=== PATIENT | female | born 1965 | race African-American/Black ===

== ENCOUNTER 2016-03-25 12:15 | Emergency (ER) | payer MEDICARE, OTHER ==
--- NOTE | 2016-03-25 14:07 | EDDOCDS ---
Nurse's Notes [facility] Name: Michelle Boyer Age: 50 yrs Sex: Female : 1965 Arrival Date: 03/25/2016 Time: 12:15 Bed TR2 Private MD: NO PRIMARY PHYSICIAN, . Diagnosis: Cutaneous abscess of right upper limb Presentation: 03/25 12:23 Presenting complaint: Patient states: spider bite that has been healing for the past 3 dsf weeks and she thinks she is having a reaction to the Keflex. Pt c/o dry skin and itching. Adult Sepsis Screening: The patient does not have new or worsening altered mentation. Patient's respiratory rate is less than 22. Systolic blood pressure is greater than 100. Patient has a qSOFA score of 0- Negative Sepsis Screen. Suicide/Homicide risk assessment- the patient denies having any suicidal and/or homicidal ideations and does not present with any other emotional, behavioral or mental health complaints. Status: Patient is not a press service reader or dependent. Transition of care: patient was not received from another setting of care. 12:23 Acuity: IAIN Level 4 dsf 12:23 Method Of Arrival: Walkin/Carried/Asstd dsf Triage Assessment: 12:30 Bite Description: Bite sustained to right bicep by a spider, Animal Information: not dsf applicable. General: Appears in no apparent distress, Behavior is appropriate for age, cooperative. Pain: Location: right bicep and right antecubital area Pain currently is 8 out of 10 on a pain scale. Pt Declines HIV testing. 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 levemir 16 units twice a day (Last dose: 03/25/2016 10:00) 2. trulicty 7.5 mg weekly on fridays 3. Cozaar 50 mg Oral tab 1 tab once daily (Last dose: 03/25/2016 09:50) 4. hydrochlorothiazide 25 mg Oral tab 1 tab once daily (Last dose: 03/25/2016 09:50) 5. Benicar 40 mg oral tab 1 tab once daily (Last dose: 03/25/2016 09:50) 6. Singulair 10 mg Oral tab 1 tab once daily (Last dose: 03/24/2016) 7. Claritin 10 mg Oral tab 1 tab once daily (Last dose: 03/24/2016) 8. Keflex 500 mg Oral cap 1 cap every 6 hours (Last dose: 03/25/2016 09:50) 9. Novolog flex pen Sub-Q three times a day sliding scale 10. Vistaril 25 mg Oral cap 1 cap 3 times per day (Last dose: 03/24/2016) 11. Benadryl 50 mg Oral cap as needed (Last dose: 03/25/2016 09:50) 12. Diflucan 150 mg oral tab every 3 days - PMHx: Hypertension; Diabetes - IDDM: uncontrolled; Seasonal Allergies; - PSHx: none; - Immunization history:: Last tetanus immunization: up to date. - Social history: Smoking status: Patient states was never smoker of tobacco. No barriers to communication noted, The patient speaks fluent Bengali, Speaks appropriately for age. - : The pt / caregiver states he / she is not on anticoagulants. Home medication list is obtained from the patient. - Exposure Risk Screening:: None identified. Screenin:56 Screening information is obtained from the patient. Fall risk: No risks identified. dwg Assistance ADL's: requires no assistance with activities of daily living. Abuse/DV Screen: The patient / caregiver reports he/she is: not in a situation that causes fear, pain or injury. Nutritional screening: No deficits noted. Advance Directives: Currently, there is no health care proxy. There is no active DNR order. There is no living will. There is no Power of Entertainment Director. Advance directive information has not previously been placed in an [facility] medical record. Further advance directive information is declined. home support is adequate. Assessment: 13:54 General: Dry, sterile dressing applied to right upper arm.. Neurological: Level of dwg Consciousness is awake, alert, Oriented to person, place, time. Respiratory: Airway is patent Respiratory effort is even, unlabored, Respiratory pattern is regular, symmetrical. Vital Signs: 12:18 BP 149 / 93; Pulse 96; Resp 18 S; Temp 97.3(O); Pulse Ox 96% on R/A; Weight 97.52 kg gr2 (R); Height 5 ft. 2 in. (157.48 cm) (R); Pain 7/10; 13:38 BP 147 / 92; Pulse 91; Resp 18; Temp 97.5(O); Pulse Ox 100% on R/A; Pain 8/10; mdr 12:18 Body Mass Index 39.32 (97.52 kg, 157.48 cm) gr2 Vitals: 12:18 Log In Time: March 25, 2016 at 12:18. gr2 ED Course: 12:17 Patient visited by Noe Alba. gr2 12:17 Patient moved to Waiting gr2 12:18 NO PRIMARY PHYSICIAN, . is Private Physician. gr2 12:20 Patient visited by Noe Alba. gr2 12:22 Patient moved to Pre RCE gr2 12:24 Triage Initiated dsf 12:44 Patient moved to Triage 1 kp 12:59 Chidi Romo PA is PHCP. btw 12:59 Becky Green MD is Attending Physician. btw 12:59 Patient visited by Chidi Romo PA. btw 13:39 Patient visited by Nikunj Cannon PCA. mdr 13:43 Patient moved to TR2 dsf 13:49 Patient name changed from Michelle\S\\S\Merlin\S\ to Michelle\S\ \S\Merlin. EDMS 13:54 [facility] Payment Agreement was scanned into [employer] and attached to record. jp5 Order Results: There are currently no results for this order. Outcome: 13:26 Discharge ordered by Provider. btw 14:07 Patient left the ED. deg Signatures: Dispatcher [employer] EDMS Mer Underwood, Photography Professor Unit deg Narinder Mclean, RN RN [facility] Veronica Pierre RN RN [facility] Chidi Romo PA PA btw Ely Bedoya RN RN dsf Noe Alba gr2 Teo Mckenna jp5 Nikunj Cannon PCA PCA mdr MTDD
--- NOTE | 2016-03-25 14:07 | EDDOCDS ---
Physician Documentation [facility] Name: Michelle Boyer Age: 50 yrs Sex: Female : 1965 Arrival Date: 03/25/2016 Time: 12:15 Bed TR2 Private MD: NO PRIMARY PHYSICIAN, . Disposition: 03/25/16 13:26 Discharged to Home/Self Care. Impression: Cutaneous abscess of right upper limb. - Condition is Stable. - Discharge Instructions: Abscess, [id number]. - Prescriptions for vancomycin 25mg/ml Oral Suspension - take 10 milliliter by ORAL route 2 times per day for 2 weeks; 200 milliliter. Diflucan 150 mg Oral Tablet - take 1 tablet by ORAL route one time for 1 day; 1 tablet. - Medication Reconciliation, Local Pharmacy Hours form. - Follow up: Private Physician; When: Call to arrange an appointment; Reason: Further diagnostic work-up, Recheck today's complaints, Continuance of care. - Problem is an ongoing problem. - Symptoms are unchanged. Historical: - Allergies: Aspirin (Swelling); Motrin (Swelling); Bactrim (Vomit); Levaquin (sensitive ); - Home Meds: 1. levemir 16 units twice a day (Last dose: 03/25/2016 10:00) 2. trulicty 7.5 mg weekly on fridays 3. Cozaar 50 mg Oral tab 1 tab once daily (Last dose: 03/25/2016 09:50) 4. hydrochlorothiazide 25 mg Oral tab 1 tab once daily (Last dose: 03/25/2016 09:50) 5. Benicar 40 mg oral tab 1 tab once daily (Last dose: 03/25/2016 09:50) 6. Singulair 10 mg Oral tab 1 tab once daily (Last dose: 03/24/2016) 7. Claritin 10 mg Oral tab 1 tab once daily (Last dose: 03/24/2016) 8. Keflex 500 mg Oral cap 1 cap every 6 hours (Last dose: 03/25/2016 09:50) 9. Novolog flex pen Sub-Q three times a day sliding scale 10. Vistaril 25 mg Oral cap 1 cap 3 times per day (Last dose: 03/24/2016) 11. Benadryl 50 mg Oral cap as needed (Last dose: 03/25/2016 09:50) 12. Diflucan 150 mg oral tab every 3 days - PMHx: Hypertension; Diabetes - IDDM: uncontrolled; Seasonal Allergies; - PSHx: none; - Immunization history:: Last tetanus immunization: up to date. - Social history: Smoking status: Patient states was never smoker of tobacco. No barriers to communication noted, The patient speaks fluent Uzbek, Speaks appropriately for age. - : The pt / caregiver states he / she is not on anticoagulants. Home medication list is obtained from the patient. - Exposure Risk Screening:: None identified. 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 2 in. (157.48 cm) (R); Pain 7/10; 13:38 BP 147 / 92; Pulse 91; Resp 18; Temp 97.5(O); Pulse Ox 100% on R/A; Pain 8/10; mdr 12:18 Body Mass Index 39.32 (97.52 kg, 157.48 cm) gr2 MDM: 13:54 [facility] [place] Payment Agreement was scanned into [employer] and attached to record. jp5 13:54 Financial registration complete. jp5 Signatures: Mer Underwood, Tool Technician Unit deg Narinder Mclean RN RN Chidi Almonte PA PA btw Fuller, DesireeRN RN Teo Dorsey jp5 The chart was reviewed and I authenticate all verbal orders and agree with the evaluation and treatment provided.Attachments: 13:54 [facility] [place] Payment Agreement jp5 MTDD
--- NOTE | 2016-03-27 15:08 | EDDOCDS ---
Physician Documentation [facility] Name: Michelle Boyer Age: 50 yrs Sex: Female : 1965 Arrival Date: 03/25/2016 Time: 12:15 Bed TR2 Private MD: NO PRIMARY PHYSICIAN, . Disposition: 03/25/16 13:26 Discharged to Home/Self Care. Impression: Cutaneous abscess of right upper limb. - Condition is Stable. - Discharge Instructions: Abscess, [id number]. - Prescriptions for vancomycin 25mg/ml Oral Suspension - take 10 milliliter by ORAL route 2 times per day for 2 weeks; 200 milliliter. Diflucan 150 mg Oral Tablet - take 1 tablet by ORAL route one time for 1 day; 1 tablet. - Medication Reconciliation, Local Pharmacy Hours form. - Follow up: Private Physician; When: Call to arrange an appointment; Reason: Further diagnostic work-up, Recheck today's complaints, Continuance of care. - Problem is an ongoing problem. - Symptoms are unchanged. Historical: - Allergies: Aspirin (Swelling); Motrin (Swelling); Bactrim (Vomit); Levaquin (sensitive ); - Home Meds: 1. levemir 16 units twice a day (Last dose: 03/25/2016 10:00) 2. trulicty 7.5 mg weekly on fridays 3. Cozaar 50 mg Oral tab 1 tab once daily (Last dose: 03/25/2016 09:50) 4. hydrochlorothiazide 25 mg Oral tab 1 tab once daily (Last dose: 03/25/2016 09:50) 5. Benicar 40 mg oral tab 1 tab once daily (Last dose: 03/25/2016 09:50) 6. Singulair 10 mg Oral tab 1 tab once daily (Last dose: 03/24/2016) 7. Claritin 10 mg Oral tab 1 tab once daily (Last dose: 03/24/2016) 8. Keflex 500 mg Oral cap 1 cap every 6 hours (Last dose: 03/25/2016 09:50) 9. Novolog flex pen Sub-Q three times a day sliding scale 10. Vistaril 25 mg Oral cap 1 cap 3 times per day (Last dose: 03/24/2016) 11. Benadryl 50 mg Oral cap as needed (Last dose: 03/25/2016 09:50) 12. Diflucan 150 mg oral tab every 3 days - PMHx: Hypertension; Diabetes - IDDM: uncontrolled; Seasonal Allergies; - PSHx: none; - Immunization history:: Last tetanus immunization: up to date. - Social history: Smoking status: Patient states was never smoker of tobacco. No barriers to communication noted, The patient speaks fluent Namibian, Speaks appropriately for age. - : The pt / caregiver states he / she is not on anticoagulants. Home medication list is obtained from the patient. - Exposure Risk Screening:: None identified. 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 2 in. (157.48 cm) (R); Pain 7/10; 13:38 BP 147 / 92; Pulse 91; Resp 18; Temp 97.5(O); Pulse Ox 100% on R/A; Pain 8/10; mdr 12:18 Body Mass Index 39.32 (97.52 kg, 157.48 cm) gr2 MDM: 13:54 [facility] Payment Agreement was scanned into [employer] and attached to record. jp5 13:54 Financial registration complete. jp5 14:46 T-Sheet-- Draft Copy was scanned into [employer] and attached to record. gb Signatures: Mer Underwood, Humanities Teacher Unit deg Narinder Mclean RN RN dwg Janel Ann, Reg Reg gb Chidi Romo PA PA btw Fuller, Desiree, RN RN dsf Price, Jennalee jp5 The chart was reviewed and I authenticate all verbal orders and agree with the evaluation and treatment provided.Attachments: 13:54 [facility] Payment Agreement jp5 14:46 T-Sheet-- Draft Copy gb Chart Complete MTDD
--- NOTE | 2016-03-27 15:08 | EDDOCDS ---
Nurse's Notes [facility] Name: Michelle Boyer Age: 50 yrs Sex: Female : 1965 Arrival Date: 03/25/2016 Time: 12:15 Bed TR2 Private MD: NO PRIMARY PHYSICIAN, . Diagnosis: Cutaneous abscess of right upper limb Presentation: 03/25 12:23 Presenting complaint: Patient states: spider bite that has been healing for the past 3 dsf weeks and she thinks she is having a reaction to the Keflex. Pt c/o dry skin and itching. Adult Sepsis Screening: The patient does not have new or worsening altered mentation. Patient's respiratory rate is less than 22. Systolic blood pressure is greater than 100. Patient has a qSOFA score of 0- Negative Sepsis Screen. Suicide/Homicide risk assessment- the patient denies having any suicidal and/or homicidal ideations and does not present with any other emotional, behavioral or mental health complaints. Status: Patient is not a surgical services manager or dependent. Transition of care: patient was not received from another setting of care. 12:23 Acuity: IAIN Level 4 dsf 12:23 Method Of Arrival: Walkin/Carried/Asstd dsf Triage Assessment: 12:30 Bite Description: Bite sustained to right bicep by a spider, Animal Information: not dsf applicable. General: Appears in no apparent distress, Behavior is appropriate for age, cooperative. Pain: Location: right bicep and right antecubital area Pain currently is 8 out of 10 on a pain scale. Pt Declines HIV testing. 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 levemir 16 units twice a day (Last dose: 03/25/2016 10:00) 2. trulicty 7.5 mg weekly on fridays 3. Cozaar 50 mg Oral tab 1 tab once daily (Last dose: 03/25/2016 09:50) 4. hydrochlorothiazide 25 mg Oral tab 1 tab once daily (Last dose: 03/25/2016 09:50) 5. Benicar 40 mg oral tab 1 tab once daily (Last dose: 03/25/2016 09:50) 6. Singulair 10 mg Oral tab 1 tab once daily (Last dose: 03/24/2016) 7. Claritin 10 mg Oral tab 1 tab once daily (Last dose: 03/24/2016) 8. Keflex 500 mg Oral cap 1 cap every 6 hours (Last dose: 03/25/2016 09:50) 9. Novolog flex pen Sub-Q three times a day sliding scale 10. Vistaril 25 mg Oral cap 1 cap 3 times per day (Last dose: 03/24/2016) 11. Benadryl 50 mg Oral cap as needed (Last dose: 03/25/2016 09:50) 12. Diflucan 150 mg oral tab every 3 days - PMHx: Hypertension; Diabetes - IDDM: uncontrolled; Seasonal Allergies; - PSHx: none; - Immunization history:: Last tetanus immunization: up to date. - Social history: Smoking status: Patient states was never smoker of tobacco. No barriers to communication noted, The patient speaks fluent Faroese, Speaks appropriately for age. - : The pt / caregiver states he / she is not on anticoagulants. Home medication list is obtained from the patient. - Exposure Risk Screening:: None identified. Screenin:56 Screening information is obtained from the patient. Fall risk: No risks identified. dwg Assistance ADL's: requires no assistance with activities of daily living. Abuse/DV Screen: The patient / caregiver reports he/she is: not in a situation that causes fear, pain or injury. Nutritional screening: No deficits noted. Advance Directives: Currently, there is no health care proxy. There is no active DNR order. There is no living will. There is no Power of Sales Attendant Building Materials. Advance directive information has not previously been placed in an [facility] medical record. Further advance directive information is declined. home support is adequate. Assessment: 13:54 General: Dry, sterile dressing applied to right upper arm.. Neurological: Level of dwg Consciousness is awake, alert, Oriented to person, place, time. Respiratory: Airway is patent Respiratory effort is even, unlabored, Respiratory pattern is regular, symmetrical. Vital Signs: 12:18 BP 149 / 93; Pulse 96; Resp 18 S; Temp 97.3(O); Pulse Ox 96% on R/A; Weight 97.52 kg gr2 (R); Height 5 ft. 2 in. (157.48 cm) (R); Pain 7/10; 13:38 BP 147 / 92; Pulse 91; Resp 18; Temp 97.5(O); Pulse Ox 100% on R/A; Pain 8/10; mdr 12:18 Body Mass Index 39.32 (97.52 kg, 157.48 cm) gr2 Vitals: 12:18 Log In Time: March 25, 2016 at 12:18. gr2 ED Course: 12:17 Patient visited by Noe Alba. gr2 12:17 Patient moved to Waiting gr2 12:18 NO PRIMARY PHYSICIAN, . is Private Physician. gr2 12:20 Patient visited by Noe Alba. gr2 12:22 Patient moved to Pre RCE gr2 12:24 Triage Initiated dsf 12:44 Patient moved to Triage 1 kp 12:59 Chidi Romo PA is PHCP. btw 12:59 Becky Green MD is Attending Physician. btw 12:59 Patient visited by Chidi Romo PA. btw 13:39 Patient visited by Nikunj Cannon PCA. mdr 13:43 Patient moved to TR2 dsf 13:49 Patient name changed from Michelle\S\\S\Merlin\S\ to Michelle\S\ \S\Merlin. EDMS 13:54 [facility] Payment Agreement was scanned into [employer] and attached to record. jp5 14:46 T-Sheet-- Draft Copy was scanned into [employer] and attached to record. gb Order Results: There are currently no results for this order. Outcome: 13:26 Discharge ordered by Provider. btw 14:07 Patient left the ED. deg Signatures: Dispatcher [employer] EDMS Mer Underwood, Pan Dumper Unit deg Narinder Mclean, RN CONNIE Veronica Jones, RN RN [facility] Janel Ann, Reg Reg gb Chidi Romo PA PA btw Ely Bedoya RN RN dsf Noe Alba gr2 Kirsten Mckennaelliot jp5 Nikunj Cannon PCA GENERAL WAREHOUSE WORKER mdr Chart Complete MTDD
--- NOTE | 2016-03-27 15:08 | EDDOCDS ---
Physician Documentation [facility] Name: Michelle Boyer Age: 50 yrs Sex: Female : 1965 Arrival Date: 03/25/2016 Time: 12:15 Bed TR2 Private MD: NO PRIMARY PHYSICIAN, . Disposition: 03/25/16 13:26 Discharged to Home/Self Care. Impression: Cutaneous abscess of right upper limb. - Condition is Stable. - Discharge Instructions: Abscess, Oznp-[id number]. - Prescriptions for vancomycin 25mg/ml Oral Suspension - take 10 milliliter by ORAL route 2 times per day for 2 weeks; 200 milliliter. Diflucan 150 mg Oral Tablet - take 1 tablet by ORAL route one time for 1 day; 1 tablet. - Medication Reconciliation, Local Pharmacy Hours form. - Follow up: Private Physician; When: Call to arrange an appointment; Reason: Further diagnostic work-up, Recheck today's complaints, Continuance of care. - Problem is an ongoing problem. - Symptoms are unchanged. Historical: - Allergies: Aspirin (Swelling); Motrin (Swelling); Bactrim (Vomit); Levaquin (sensitive ); - Home Meds: 1. levemir 16 units twice a day (Last dose: 03/25/2016 10:00) 2. trulicty 7.5 mg weekly on fridays 3. Cozaar 50 mg Oral tab 1 tab once daily (Last dose: 03/25/2016 09:50) 4. hydrochlorothiazide 25 mg Oral tab 1 tab once daily (Last dose: 03/25/2016 09:50) 5. Benicar 40 mg oral tab 1 tab once daily (Last dose: 03/25/2016 09:50) 6. Singulair 10 mg Oral tab 1 tab once daily (Last dose: 03/24/2016) 7. Claritin 10 mg Oral tab 1 tab once daily (Last dose: 03/24/2016) 8. Keflex 500 mg Oral cap 1 cap every 6 hours (Last dose: 03/25/2016 09:50) 9. Novolog flex pen Sub-Q three times a day sliding scale 10. Vistaril 25 mg Oral cap 1 cap 3 times per day (Last dose: 03/24/2016) 11. Benadryl 50 mg Oral cap as needed (Last dose: 03/25/2016 09:50) 12. Diflucan 150 mg oral tab every 3 days - PMHx: Hypertension; Diabetes - IDDM: uncontrolled; Seasonal Allergies; - PSHx: none; - Immunization history:: Last tetanus immunization: up to date. - Social history: Smoking status: Patient states was never smoker of tobacco. No barriers to communication noted, The patient speaks fluent Lithuanian, Speaks appropriately for age. - : The pt / caregiver states he / she is not on anticoagulants. Home medication list is obtained from the patient. - Exposure Risk Screening:: None identified. 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 2 in. (157.48 cm) (R); Pain 7/10; 13:38 BP 147 / 92; Pulse 91; Resp 18; Temp 97.5(O); Pulse Ox 100% on R/A; Pain 8/10; mdr 12:18 Body Mass Index 39.32 (97.52 kg, 157.48 cm) gr2 MDM: 13:54 [facility] Payment Agreement was scanned into [employer] and attached to record. jp5 13:54 Financial registration complete. jp5 14:46 T-Sheet-- Draft Copy was scanned into [employer] and attached to record. gb Signatures: Mer Underwood, Radiation Therapy Technologist Unit deg Narinder Mclean RN RN dwg Janel Ann, Reg Reg gb Chidi Romo PA PA btw Fuller, Desiree, RN RN dsf Price, Jennalee jp5 The chart was reviewed and I authenticate all verbal orders and agree with the evaluation and treatment provided.Attachments: 13:54 [facility] Payment Agreement jp5 14:46 T-Sheet-- Draft Copy gb Chart Complete MTDD
== END 2016-03-25 14:07 | disposition home or self-care (01) ==
LOC: M ED 12:15
DX: L03.113 Cellulitis of right upper limb (principal); E11.9 Type 2 diabetes mellitus without complications; I10 Essential (primary) hypertension; J30.2 Other seasonal allergic rhinitis; Z79.899 Other long term (current) drug therapy; Z79.4 Long term (current) use of insulin; Z88.1 Allergy status to other antibiotic agents; Z88.6 Allergy status to analgesic agent